=== PATIENT | female | born 1980 | race Caucasian/White ===

== ENCOUNTER 2018-12-24 18:54 | Emergency (ER) | payer OTHER ==
[~2018-12-24] VITALS: Ht 172.7 cm; Wt 116.1 kg
[2018-12-24 19:24] VITALS: Ht 172.7 cm; Wt 116.1 kg
[2018-12-24 21:40] VITALS: BP 112/86
== END 2018-12-24 21:40 | disposition home or self-care (01) ==
LOC: ED 18:54
DX: S16.1XXA Strain of muscle, fascia and tendon at neck level, initial encounter (principal); V49.09XA Driver injured in collision with other motor vehicles in nontraffic accident, initial encounter; W22.11XA Striking against or struck by driver side automobile airbag, initial encounter; Y93.I9 Activity, other involving external motion; Y92.413 State road as the place of occurrence of the external cause; Y99.8 Other external cause status
CPT/HCPCS: J1885

== ENCOUNTER 2020-11-30 18:26 | Emergency (ER) | payer BC ==
[~2020-11-30] VITALS: Ht 172.7 cm; Wt 91.6 kg
[2020-11-30 18:34] VITALS: Ht 172.7 cm; Wt 91.6 kg
[2020-11-30 20:37] LABS: BASOPHIL % 0.6 % (0.2-1.3); PLATELET COUNT 322 x10^3mcL (179-408)
[2020-11-30 20:40] LABS: RED CELL DISTRIBUTION WIDTH 15.1 % (12.3-17.7)
[2020-11-30 21:36] VITALS: BP 118/74
== END 2020-11-30 21:36 | disposition home or self-care (01) ==
LOC: ED 18:26
PROVIDERS: Emergency Medicine
DX: O20.0 Threatened abortion (principal); Z91.040 Latex allergy status

== ENCOUNTER 2020-12-02 09:59 | Emergency (ER) | payer BC ==
[~2020-12-02] VITALS: Ht 172.7 cm; Wt 98.9 kg
[2020-12-02 10:04] VITALS: BP 116/52; Ht 172.7 cm; Wt 98.9 kg
[2020-12-02 10:39] LABS: PLATELET COUNT 310 x10^3mcL (179-408)
[2020-12-02 10:46] LABS: RED CELL DISTRIBUTION WIDTH 15.2 % (12.3-17.7)
[2020-12-02 11:14] LABS: CALCIUM 8.9 mg/dL (8.5-10.1); CARBON DIOXIDE 26.6 mmol/L (21-32); CHLORIDE SERUM 106 mmol/L (98-107); CREATININE SERUM 0.8 mg/dL (0.6-1.0); GFR1 > 60 mL/min; GLUCOSE SERUM 89 mg/dL (74-106); POTASSIUM SERUM 4.3 mmol/L (3.5-5.1); SODIUM SERUM 137 mmol/L (136-145)
[2020-12-02 11:19] LABS: ALBUMIN 3.2 g/dL (3.4-5.0); ALKALINE PHOSPHATASE 57 U/L (46-116); ALT/SGPT 20 U/L (14-59); AST/SGOT 15 U/L (15-37); BILIRUBIN TOTAL 0.6 mg/dL (0.20-1.00); TOTAL PROTEIN, SERUM 6.3 g/dL (6.4-8.2)
== END 2020-12-02 11:51 | disposition home or self-care (01) ==
LOC: ED 09:59
DX: O03.9 Complete or unspecified spontaneous abortion without complication (principal); Z91.040 Latex allergy status; Z98.84 Bariatric surgery status; Z90.49 Acquired absence of other specified parts of digestive tract; Z98.890 Other specified postprocedural states